=== PATIENT | female | born 1940 | race Caucasian/White ===

== ENCOUNTER → 2020-02-08 | Outpatient (CLI) | payer MEDICARE, OTHER | LOC: RAD 08:50 | PROVIDERS: ATTEND Internal Medicine | DX: Z12.31 Encounter for screening mammogram for malignant neoplasm of breast (principal) | CPT/HCPCS: 77063; 77067 ==

== ENCOUNTER → 2021-02-23 | Outpatient (CLI) | payer MEDICARE, OTHER ==
--- NOTE | 2021-02-23 15:54 | Diagnostic Imaging Report ---
INDICATION: Routine screening. COMPARISON: 02/08/2020 and 07/09/2017. TECHNIQUE: 2D and 3D bilateral screening mammography was performed with CAD. FINDINGS: Both breasts are heterogeneously dense, limiting the sensitivity of mammography. Scattered benign parenchymal and vascular calcifications are again noted bilaterally. There is a biopsy marker clip in the medial right breast. No mass or malignant-appearing microcalcifications are seen. The axillae are unremarkable. IMPRESSION: No mammographic features suspicious for malignancy are identified. ACR BI-RADS Category 2: Benign findings. Result letter will be mailed to the patient. Note: At least 10% of breast cancer is not imaged by mammography. Dictated by: Dictated on workstation # [id number]
== END ==
LOC: RAD 14:50
PROVIDERS: ATTEND Internal Medicine
DX: Z12.31 Encounter for screening mammogram for malignant neoplasm of breast (principal)
CPT/HCPCS: 77063; 77067

== ENCOUNTER → 2021-07-28 | Outpatient (CLI) | payer MEDICARE, OTHER ==
--- NOTE | 2021-07-28 13:34 | Diagnostic Imaging Report ---
PROCEDURE: US Thyroid. TECHNIQUE: Multiple real-time grayscale images were obtained of the thyroid in various projections. INDICATION: Goiter. COMPARISON: None available. FINDINGS: The right lobe of the thyroid gland measures 5.2 x 1.8 x 2.0 cm. It is mildly heterogeneous in echotexture. Three relatively similar appearing round and ovoid hypoechoic solid nodules with circumscribed margins are identified within the mid inferior pole of the right thyroid lobe. The largest measures 1.2 x 0.9 x 0.8 cm while the next largest measures 0.7 x 0.5 x 0.3 cm. The left lobe of the thyroid gland measures 4.8 x 1.2 x 1.3 cm. A solid ovoid hypoechoic 0.6 x 0.5 cm solid nodule with circumscribed margins is seen within the superior pole of the left thyroid lobe. The isthmus is unremarkable. IMPRESSION: Bilateral TI-RADS 4 nodules as described above, largest measuring up to 1.2 cm. Follow-up ultrasound of the thyroid gland is recommended in one year. Dictated by: Dictated on workstation # [id number]
== END ==
LOC: RAD 12:00
PROVIDERS: ATTEND Otolaryngology Otolaryngology/Facial Plastic Surgery
DX: E04.2 Nontoxic multinodular goiter (principal)
CPT/HCPCS: 76536

== ENCOUNTER 2021-09-25 14:59 | Outpatient (CLI) | payer MEDICARE, OTHER | END 2021-09-25 15:30 | LOC: SLEEP 14:59 | PROVIDERS: ATTEND Otolaryngology Otolaryngology/Facial Plastic Surgery | DX: G47.33 Obstructive sleep apnea (adult) (pediatric) (principal); G47.10 Hypersomnia, unspecified; E04.9 Nontoxic goiter, unspecified | CPT/HCPCS: G0399 ==

== ENCOUNTER → 2022-02-16 | Outpatient (CLI) | payer MEDICARE, OTHER ==
--- NOTE | 2022-02-16 18:18 | Diagnostic Imaging Report ---
INDICATION: Left foot pain. EXAMINATION: AP, oblique and lateral views of the left foot were obtained. No fracture or acute bony abnormality is seen. Joint spaces appear grossly unremarkable. There is no lytic or blastic lesion. There is plantar and posterior calcaneal spurring. IMPRESSION: Plantar and posterior calcaneal spurring. No acute abnormality detected. Dictated by: Dictated on workstation # [id number]
== END ==
LOC: RAD 13:59
PROVIDERS: ATTEND Internal Medicine
DX: M77.32 Calcaneal spur, left foot (principal)
CPT/HCPCS: 73630

== ENCOUNTER → 2022-02-26 | Outpatient (CLI) | payer MEDICARE, OTHER ==
--- NOTE | 2022-02-26 17:31 | Diagnostic Imaging Report ---
Indication: Routine screening. Comparison is made with prior mammograms from 02/23/2021 and 02/08/2020. 2-D and 3-D bilateral screening mammography was performed with CAD. Both breasts are heterogeneously dense, limiting the sensitivity of mammography. There is significant motion artifact in the left MLO view. This should be repeated. Extensive benign calcifications bilaterally are noted. A biopsy marker clip medial right breast is again noted. No mass is detected. No malignant-appearing microcalcifications are seen. Axillae are unremarkable. IMPRESSION: BI-RADS 0 Significant motion artifact left breast MLO view. This should be repeated. ACR BI-RADS Category 0: Incomplete. (Needs additional imaging evaluation). Result letter will be mailed to the patient. Note: At least 10% of breast cancer is not imaged by mammography. Dictated by: Dictated on workstation # [id number]
== END ==
LOC: RAD 14:15
PROVIDERS: ATTEND Internal Medicine
DX: Z12.31 Encounter for screening mammogram for malignant neoplasm of breast (principal)
CPT/HCPCS: 77063; 77067

== ENCOUNTER → 2022-03-01 | Outpatient (CLI) | payer MEDICARE, OTHER ==
--- NOTE | 2022-03-02 09:10 | Diagnostic Imaging Report ---
Indication: Motion artifact. Patient presents for a repeat exam. Correlation is made with prior studies of 02/23/2021 and 02/08/2020. Unilateral left 2-D and 3-D screening mammography was performed with CAD. Left breast is heterogeneously dense, limiting the sensitivity of mammography. Repeat left MLO view is satisfactory. There are numerous calcifications throughout the left breast. No mass or malignant-appearing microcalcifications are seen. Left axilla is unremarkable. IMPRESSION: BI-RADS Category 2 No mammographic features suspicious for malignancy are identified. ACR BI-RADS Category 2: Benign findings. Result letter will be mailed to the patient. Note: At least 10% of breast cancer is not imaged by mammography. Dictated by: Dictated on workstation # [id number]
== END ==
LOC: RAD 15:00
PROVIDERS: ATTEND Internal Medicine
DX: Z12.31 Encounter for screening mammogram for malignant neoplasm of breast (principal)
CPT/HCPCS: 77063

== ENCOUNTER → 2022-08-08 | Outpatient (CLI) | payer MEDICARE, OTHER ==
--- NOTE | 2022-08-08 17:32 | Diagnostic Imaging Report ---
PROCEDURE: US Thyroid. TECHNIQUE: Multiple real-time grayscale images were obtained of the thyroid in various projections. INDICATION: Thyroid goiter. Bilateral thyroid nodules. COMPARISON: 07/28/2021. FINDINGS: Right thyroid lobe: Size (cm): 4.8 x 2.3 x 1.8 Echotexture: Normal Vascularity: Normal Nodules: In the superior right thyroid, there is a hypoechoic solid taller than wide 6 mm nodule which is stable in size. In the mid right thyroid, there is a hypoechoic solid nodule measuring 1.1 cm in size, stable since the prior study. In the inferior right thyroid, there is a hypoechoic solid 6 mm nodule which is stable. Isthmus: Size (cm): 0.2 Nodules: None Left thyroid lobe: Size (cm): 1.6 x 4.5 x 2.0 Echotexture: Normal Vascularity: Normal Nodules: There is a hypoechoic solid nodule measuring 6 mm, which is stable, in the superior left thyroid. IMPRESSION: 1. Multiple thyroid nodules, stable since the prior exam. The dominant nodule in the right thyroid warrants follow-up ultrasound in one year. Dictated by: Dictated on workstation # [id number]
== END ==
LOC: RAD 15:28
PROVIDERS: ATTEND Otolaryngology Otolaryngology/Facial Plastic Surgery
DX: E04.2 Nontoxic multinodular goiter (principal)
CPT/HCPCS: 76536

== ENCOUNTER → 2022-09-04 | Outpatient (CLI) | payer MEDICARE, OTHER | LOC: RAD 14:12 | PROVIDERS: ATTEND Registered Nurse | DX: M51.36 Other intervertebral disc degeneration, lumbar region (principal); M47.816 Spondylosis without myelopathy or radiculopathy, lumbar region; Z53.9 Procedure and treatment not carried out, unspecified reason ==

== ENCOUNTER → 2022-10-02 | Outpatient (CLI) | payer MEDICARE, OTHER ==
--- NOTE | 2022-10-02 17:06 | Diagnostic Imaging Report ---
INDICATION: Degenerative disc disease, lumbar radiculopathy. COMPARISON: None available. TECHNIQUE: Four radiographs of the lumbar spine dated 10/02/2022. FINDINGS: Five lumbar type vertebral bodies are present. Mild apex left curvature of the visualized thoracolumbar spine. No significant anterolisthesis or retrolisthesis. Besides scattered endplate degenerative changes, particularly at L3/L4 and L4/L5, vertebral body heights are otherwise well-maintained. Mild to moderate multilevel disc space height loss, greatest at L2/L3, L3/L4, and L4/L5. Multilevel anterior osteophyte formation is present. Prominent lateral osteophytes are also noted throughout the lumbar spine. No evidence of a pars interarticularis defect. The sacroiliac joints and pubic symphysis are intact. Scattered facet joint degenerative changes, greatest within the lower lumbar spine. Mild background vascular calcifications. A 1.5 cm round peripherally calcified lesion is noted overlying the left upper abdomen. Surgical clips within the right upper abdomen. IMPRESSION: No acute osseous abnormality with apex left curvature of the thoracolumbar spine and moderate multilevel degenerative changes as above. 1.5 cm round peripherally calcified lesion overlying the left upper abdomen which is nonspecific. This could relate to a peripherally calcified splenic artery aneurysm. A peripherally calcified adrenal lesion is felt less likely. Enteric contents are also felt less likely. Comparison to prior imaging would be beneficial. If further evaluation is desired, then a CT of the abdomen would be indicated. Dictated by: Dictated on workstation # [id number]
== END ==
LOC: RAD 14:43
PROVIDERS: ATTEND Nurse Practitioner
DX: M51.16 Intervertebral disc disorders with radiculopathy, lumbar region (principal); M43.8X5 Other specified deforming dorsopathies, thoracolumbar region; M47.26 Other spondylosis with radiculopathy, lumbar region
CPT/HCPCS: 72110

== ENCOUNTER → 2022-11-02 | Outpatient (CLI) | payer MEDICARE, OTHER ==
--- NOTE | 2022-11-02 09:27 | Diagnostic Imaging Report ---
EXAMINATION: CT abdomen and pelvis without contrast. TECHNIQUE: Multiple contiguous axial images were obtained through the abdomen and pelvis without the use of intravenous contrast. All CT scans use one or more of the following dose optimizing techniques: automated exposure control, MA and/or KvP adjustment based on patient size and exam type or iterative reconstruction. HISTORY: Left upper quadrant mass. COMPARISON: 10/02/2022 FINDINGS: Lung bases: Bibasilar dependent atelectasis. Solid organs: The liver is normal. The gallbladder is surgically absent. There is no biliary ductal dilation. Pancreas is normal. Spleen is normal. Adrenal glands are normal. There are bilateral nonobstructing renal calculi present measuring up to 0.4 cm in the right kidney. No hydronephrosis. Bowel: The stomach and small bowel are normal without obstruction. There is scattered colonic diverticulosis. The appendix is normal. Peritoneum: There is no intraperitoneal free fluid or free air. No suspicious lymphadenopathy. Vasculature: Calcification of the aorta without aneurysm. There is a calcified splenic artery aneurysm measuring 1.6 cm, likely corresponding abnormality on prior radiograph. Musculoskeletal: Degenerative changes of the spine without suspicious osseous lesion or compression fracture. Pelvis: The uterus is surgically absent. No adnexal mass. The urinary bladder is normal. IMPRESSION: 1. No acute abnormality in the abdomen or pelvis. 2. 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 3. Colonic diverticulosis. 4. Nonobstructing renal calculi measuring up to 0.4 cm. No hydronephrosis. Dictated by: Dictated on workstation # [id number]
== END ==
LOC: RAD 09:15
PROVIDERS: ATTEND Nurse Practitioner
DX: I72.8 Aneurysm of other specified arteries (principal); K57.90 Diverticulosis of intestine, part unspecified, without perforation or abscess without bleeding; N20.0 Calculus of kidney
CPT/HCPCS: 74176